=== PATIENT | male | born 2000 | race African-American/Black ===

== ENCOUNTER 2020-02-13 21:46 | Emergency (ER) | payer OTHER ==
[~2020-02-13] VITALS: Ht 170 cm; Wt 59.8 kg
[2020-02-13] MEDS ORDERED: LACTATED RINGERS 1,000 ML IV STA (22:28)
[2020-02-13] MEDS ORDERED: KETOROLAC 30 MG/ML VIAL IVP STA (22:28)
[2020-02-13 22:56] LABS: BASOPHILS % (AUTO) 0 % (0-10); EOSINOPHILS # (AUTO) 0.1 10^3/uL (0.0-0.3); EOSINOPHILS % (AUTO) 1 % (0-10); HEMATOCRIT 44 % (40-54); HEMOGLOBIN 15.8 G/DL (13.3-17.7); LYMPHOCYTES # (AUTO) 1.9 X 10^3 (1.0-4.0); LYMPHOCYTES % (AUTO) 33 % (12-44); MEAN CORPUSCULAR HEMOGLOBIN 31 PG (25-34); MEAN CORPUSCULAR HGB CONC 36 G/DL (32-36); MEAN CORPUSCULAR VOLUME 85 FL (80-99); MEAN PLATELET VOLUME 8.8 FL (7.4-10.4); MONOCYTES # (AUTO) 0.9 X 10^3 (0.0-1.0); MONOCYTES % (AUTO) 15 % (0-12); NEUTROPHILS % (AUTO) 51 % (42-75); PLATELET COUNT 257 10^3/uL (130-400); WHITE BLOOD COUNT 5.8 10^3/uL (4.3-11.0)
[2020-02-13 23:06] LABS: ALBUMIN 4.4 GM/DL (3.2-4.5); CHLORIDE 102 MMOL/L (98-107); POTASSIUM 3.6 MMOL/L (3.6-5.0); SODIUM 138 MMOL/L (135-145)
[2020-02-13 23:08] LABS: CALCIUM 9.6 MG/DL (8.5-10.1)
[2020-02-13 23:09] LABS: GLUCOSE 76 MG/DL (70-105); TOTAL PROTEIN 7.5 GM/DL (6.4-8.2)
[2020-02-13 23:10] LABS: CARBON DIOXIDE 25 MMOL/L (21-32)
[2020-02-13 23:12] LABS: ALKALINE PHOSPHATASE 66 U/L (40-136); CREATININE SERUM 1.04 MG/DL (0.60-1.30); GFR ESTIMATED > 60
[2020-02-13 23:13] LABS: BUN/CREATININE RATIO 15
[2020-02-13 23:15] LABS: ALANINE AMINOTRANSFERASE 21 U/L (0-55)
--- NOTE | 2020-02-13 23:18 | ED Abdominal Pain ---
General Chief Complaint: Abdominal/GI Problems Stated Complaint: NAUSEA/VOMITING/ABD PAIN Nursing Triage Note: upper abdominal pain, headache, dizziness x2 days. n/v, soa with exertion today. Sepsis Screen: No Definite Risk Source of Information: Patient Exam Limitations: No Limitations History of Present Illness Date Seen by Provider: Feb 13, 2020 Time Seen by Provider: 22:20 Initial Comments Here with report of upper abdominal pain headache, nausea and vomiting and overall not feeling well. Thought maybe he was a little short of air today denies contact with anybody with COVID-19. Denies fever. States he has history of having low white blood count and has seen manufacturing engineering professor for this and has not had determination of cause. Reports vomiting twice today. He is in the and is preparing for deployment. His physicals have been okay. Timing/Duration: 1-2 Days Severity/Quality: Mild, Moderate, Cramping Location: RUQ, LUQ Radiation: No Radiation Activities at Onset: None Modifying Factors: Worsens With Eating; Improves With Resting, Improves With Vomiting Associated Symptoms: No Back Pain, No Chest Pain, No Fever/Chills, No Fatigue, No Heartburn; Nausea/Vomiting, Shortness of Air Allergies and Home Medications Allergies Coded Allergies: No Known Drug Allergies (Unverified , 02/13/20) Patient Home Medication List Home Medication List Reviewed: Yes Review of Systems Review of Systems Constitutional: see HPI EENTM: No Nose Congestion, No Throat Pain Respiratory: Denies Cough; SOA With Exertion; Denies SOA at Rest Cardiovascular: No Symptoms Reported Gastrointestinal: Abdominal Pain; Denies Diarrhea; Nausea, Vomiting Genitourinary: Denies Frequency, Denies Pain Musculoskeletal: no symptoms reported Skin: no symptoms reported Psychiatric/Neurological: Headache; Denies Weakness; Other (fatigue) All Other Systems Reviewed Negative Unless Noted: Yes Past [id number]-[id number]-Eikqbb Hx Past Med/Social Hx: Reviewed Nursing Past Med/Soc Hx Patient Social History Alcohol Use: Denies Use Recreational Drug Use: No Smoking Status: Current Everyday Smoker Type Used: Cigarettes 2nd Hand Smoke Exposure: Yes Recent Foreign Travel: No Contact w/Someone Who Travel: No Recent Infectious Disease Expo: No Recent Hopitalizations: No Physical Abuse: No Sexual Abuse: No Mistreated: No Fear: No Immunizations Up To Date Tetanus Booster (TDap): Less than 5yrs Seasonal Allergies Seasonal Allergies: No Past Medical History Surgeries: No Respiratory: No Cardiac: No Neurological: No Genitourinary: No Gastrointestinal: Yes Gastroesophageal Reflux Musculoskeletal: No Endocrine: No HEENT: No Cancer: No Psychosocial: No Integumentary: No Blood Disorders: No Adverse Reaction/Blood Tranf: No Family Medical History Reviewed Nursing Family Hx No Pertinent Family Hx Physical Exam Vital Signs Vital Signs - First Documented 02/13/20 21:57 Temp 36.1 Pulse 70 Resp 20 B/P (MAP) 121/77 (92) Pulse Ox 99 O2 Delivery Room Air Capillary Refill : Less Than 3 Seconds Height/Weight/BMI Height: '" Weight: lbs. oz. kg; 20.00 BMI Method: General Appearance: WD/WN, no apparent distress HEENT: PERRL/EOMI, pharynx normal Neck: full range of motion, supple Respiratory: lungs clear, normal breath sounds Cardiovascular: regular rate, rhythm, no murmur Gastrointestinal: non tender, soft Extremities: non-tender, normal inspection Back: normal inspection, no CVA tenderness, no vertebral tenderness Neurologic/Psychiatric: alert, oriented x 3 Skin: normal color, warm/dry Progress/Results/Core Measures Results/Orders Lab Results Laboratory Tests Test 02/13/20 22:47 Range/Units White Blood Count 5.8 4.3-11.0 10^3/uL Red Blood Count 5.18 4.35-5.85 10^6/uL Hemoglobin 15.8 13.3-17.7 G/DL Hematocrit 44 40-54 % Mean Corpuscular Volume 85 80-99 FL Mean Corpuscular Hemoglobin 31 25-34 PG Mean Corpuscular Hemoglobin Concent 36 32-36 G/DL Red Cell Distribution Width 12.6 10.0-14.5 % Platelet Count 257 130-400 10^3/uL Mean Platelet Volume 8.8 7.4-10.4 FL Neutrophils (%) (Auto) 51 42-75 % Lymphocytes (%) (Auto) 33 12-44 % Monocytes (%) (Auto) 15 H 0-12 % Eosinophils (%) (Auto) 1 0-10 % Basophils (%) (Auto) 0 0-10 % Neutrophils # (Auto) 3.0 1.8-7.8 X 10^3 Lymphocytes # (Auto) 1.9 1.0-4.0 X 10^3 Monocytes # (Auto) 0.9 0.0-1.0 X 10^3 Eosinophils # (Auto) 0.1 0.0-0.3 10^3/uL Basophils # (Auto) 0.0 0.0-0.1 10^3/uL Erythrocyte Sedimentation Rate 1 0-15 MM/HR D-Dimer < 0.27 0.00-0.49 UG/ML Sodium Level 138 135-145 MMOL/L Potassium Level 3.6 3.6-5.0 MMOL/L Chloride Level 102 98-107 MMOL/L Carbon Dioxide Level 25 21-32 MMOL/L Anion Gap 11 5-14 MMOL/L Blood Urea Nitrogen 16 7-18 MG/DL Creatinine 1.04 0.60-1.30 MG/DL Estimat Glomerular Filtration Rate > 60 BUN/Creatinine Ratio 15 Glucose Level 76 70-105 MG/DL Calcium Level 9.6 8.5-10.1 MG/DL Corrected Calcium 9.3 8.5-10.1 MG/DL Total Bilirubin 1.0 0.1-1.0 MG/DL Aspartate Amino Transf (AST/SGOT) 31 5-34 U/L Alanine Aminotransferase (ALT/SGPT) 21 0-55 U/L Alkaline Phosphatase 66 40-136 U/L Lactate Dehydrogenase 166 125-220 U/L C-Reactive Protein High Sensitivity 0.05 0.00-0.50 MG/DL Total Protein 7.5 6.4-8.2 GM/DL Albumin 4.4 3.2-4.5 GM/DL Procalcitonin 0.01 <0.10 NG/ML My Orders Orders - JAYLA DOVE MD Cbc With Automated Diff (02/13/20 22:28) Comprehensive Metabolic Panel (02/13/20 22:28) Hs C Reactive Protein (02/13/20 22:28) Erythrocyte Sedimentation Rate (02/13/20 22:28) Fibrin Degradation Products (02/13/20 22:28) Lactated Ringers (Lr 1000 Ml Iv Solution (02/13/20 22:28) Ed Iv/Invasive Line Start (02/13/20 22:28) Ketorolac Injection (Toradol Injection) (02/13/20 22:28) Procalcitonin (Pct) (02/13/20 22:28) LDH (02/13/20 22:28) Vital Signs/I&O 02/13/20 21:57 Temp 36.1 Pulse 70 Resp 20 B/P (MAP) 121/77 (92) Pulse Ox 99 O2 Delivery Room Air Blood Pressure Mean: 92 Progress Progress Note : Progress Note Seen and evaluated. IV, labs, LR 1 L bolus and Toradol 30 mg IV ordered. Monitor patient. 2355: Overall not concerning labs. Patient states he feels a little better. No indication for admission or further evaluation currently area patient instructed to follow-up with his doctor as needed. Discharged home with return precautions. Patient verbalize understanding instructions and agreement with plan. Departure Impression Primary Impression: Abdominal pain Qualified Codes: R10.10 - Upper abdominal pain, unspecified Disposition: HOME, SELF-CARE Condition: Improved Departure-Patient Inst. Decision time for Depature: 23:56 Patient Instructions: Severe Abdominal Pain, Adult (DC) Add. Discharge Instructions: All discharge instructions reviewed with patient and/or family. Voiced understanding. Continue home medications as previously prescribed. Clear or light diet for the next couple days and then advance as tolerated. Follow-up with your doctor for recheck as needed. Return for worse pain, vomiting, weakness, breathing problems or other concerns as needed. JAYLA DOVE MD Feb 13, 2020 23:17
[2020-02-13 23:23] LABS: ERYTHROCYTE SEDIMENTATION RATE 1 MM/HR (0-15)
[2020-02-14 00:02] VITALS: BP 128/42
== END 2020-02-14 00:05 | disposition home or self-care (01) ==
LOC: ER 21:50
DX: R10.11 Right upper quadrant pain (principal); R10.12 Left upper quadrant pain; R51 Headache; F17.210 Nicotine dependence, cigarettes, uncomplicated
CPT/HCPCS: 36415; 80053; 83615; 84145; 85025; 85379; 85652; 86141